=== PATIENT | male | born 1965 | race Caucasian/White ===

== ENCOUNTER → 2019-03-24 | Outpatient (CLI) | payer OTHER ==
--- NOTE | 2019-03-24 12:34 | KCIC ---
EXAM: Right shoulder, 3 views; bilateral thumbs, 3 views; bilateral wrists, 3 views. HISTORY: Pain. COMPARISON: None. FINDINGS: Bilateral wrists: 3 views of both wrists are obtained. There is a tiny ossicle at the base of the left first metacarpal, likely due to a chronic fragmented spur. There is right first carpometacarpal joint space narrowing with subchondral sclerosis and spurring. There is no fracture, dislocation or subluxation. Bilateral thumbs: 3 views of both thumbs are obtained. There is no fracture, dislocation or subluxation. There is right greater than left first carpometacarpal joint space narrowing with subchondral sclerosis and spurring. There is a suspected tiny chronic fragmented osteophyte at the base of the left first metacarpal and adjacent to the bilateral interphalangeal joints. Left shoulder: 3 views of left shoulder obtained. There is no fracture, dislocation or subluxation. IMPRESSION: 1. Mild right greater than left first carpometacarpal joint osteoarthritis. 2. No acute osseous finding. Electronically signed by: Bharati Burkett MD (03/24/2019 12:31 PM) [facility] [place]
== END | disposition home or self-care (01) ==
LOC: KCIC 11:40
PROVIDERS: ATTEND Family Medicine
DX: M19.032 Primary osteoarthritis, left wrist (principal); M19.031 Primary osteoarthritis, right wrist; M75.51 Bursitis of right shoulder; M77.8 Other enthesopathies, not elsewhere classified; M25.832 Other specified joint disorders, left wrist; M25.831 Other specified joint disorders, right wrist
CPT/HCPCS: 73030; 73110